=== PATIENT | female | born 1995 ===

== ENCOUNTER 2019-05-26 07:56 | Emergency (ER) | payer MEDICAID, OTHER ==
--- NOTE | 2019-05-26 08:32 | EDM.PDOC ---
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 She reports that her last period was March 10, and she had 2 tests positive at home on March 30. Over the last 2 days she started bleeding and it has slowly gotten heavier. No cramping or pain. No other symptoms - she does not feel lightheaded, dizzy, has not had any other abnormal vaginal discharge, has not had any symptoms of a urinary tract infection such as increased urgency or frequency. She is otherwise healthy, takes no medications. She has not drunk alcohol in the past 3 months, and is a former smoker but has not smoked in the past few months. She is with 3-year-old son. There were no problems with the first . She did notice an GEN some symptoms of her breast hurting and feeling a little bit dizzy like she did when she was before. 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 ED EXAM, GENERAL - Physical Exam Exam: See Below Free Text/Narrative:: General: Alert, very pleasant no acute distress. Pupils equal and reactive, mucous members moist. Neck is supple and there is no cervical lymphadenopathy, thyroid. Illness. Heart is regular rate and rhythm and I do not hear a murmur. Lungs are clear throughout with no wheezes or crackles and good air movement. Abdomen is positive bowel sounds, soft nondistended and tender in the suprapubic area and slightly to the left. No left-sided or right-sided adnexal area tenderness on abdominal exam. Pelvic exam shows normal external female genitalia. Speculum exam shows small amount of blood in the vaginal vault. Cervix is very difficult to visualize but I do not see an open os, it seems to be very anterior and I did not get a clear view. Course - Vital Signs Text/Narrative:: labs ordered, initial exam obtained. Concern for threatened . Last Recorded V/S: Last Vital Signs Temp 36.8 C 05/26/19 07:59 Pulse 79 05/26/19 07:59 Resp 18 05/26/19 07:59 BP 112/67 05/26/19 07:59 Pulse Ox 100 05/26/19 07:59 - Orders/Labs/Meds Orders: Active Orders 24 hr Category Date Time Status CHLAMYDIA/GC AMPLIFICATION Routine Lab 05/26/19 09:12 Received PATIENT RETYPE [BBK] Stat Lab 05/26/19 08:50 Results TYPE AND SCREEN [BBK] Stat Lab 05/26/19 08:50 Results Labs: Laboratory Tests 05/26/19 05/26/19 05/26/19 Range/Units 08:50 08:50 08:50 Hgb 13.3 (11.5-15.5) g/dL HCG, Quant 3178 (<5) mIU/mL Urine Color (YELLOW) Urine Appearance (CLEAR) Urine pH (5.0-6.5) Ur Specific [place] (1.010-1.025) Urine Protein (NEGATIVE) mg/dL Urine Glucose (UA) (NORMAL) mg/dL Urine Ketones (NEGATIVE) mg/dL Urine Occult Blood (NEGATIVE) Urine Nitrite (NEGATIVE) Urine Bilirubin (NEGATIVE) Urine Urobilinogen (NEGATIVE) mg/dL Ur Leukocyte Esterase (NEGATIVE) Urine RBC (0-5) Urine WBC (0-5) Ur Squamous Epith Cells (NS,R,O) Urine Bacteria (NS) Blood Type A POSITIVE Gel Antibody Screen Negative 05/26/19 Range/Units 08:53 Hgb (11.5-15.5) g/dL HCG, Quant (<5) mIU/mL Urine Color Yellow (YELLOW) Urine Appearance Slightly cloudy (CLEAR) Urine pH 6.0 (5.0-6.5) Ur Specific [place] 1.015 (1.010-1.025) Urine Protein Negative (NEGATIVE) mg/dL Urine Glucose (UA) Normal (NORMAL) mg/dL Urine Ketones Negative (NEGATIVE) mg/dL Urine Occult Blood Large H (NEGATIVE) Urine Nitrite Negative (NEGATIVE) Urine Bilirubin Negative (NEGATIVE) Urine Urobilinogen Normal (NEGATIVE) mg/dL Ur Leukocyte Esterase Negative (NEGATIVE) Urine RBC 10-20 H (0-5) Urine WBC 0-5 (0-5) Ur Squamous Epith Cells Few H (NS,R,O) Urine Bacteria Moderate H (NS) Blood Type Gel Antibody Screen - Re-Assessments/Exams Free Text/Narrative Re-Assessment/Exam: 05/26/19 labs reviewed, HCG 3178 which is low given her dates. Abdominal exam had some tenderness. No US available here today. Bedside abdominal US personally performed does not show clear sac, pole, or any visible anatomy. Sent to [facility] for OB & transvaginal US. Patient to return here once complete. Free Text/Narrative Re-Assessment/Exam: 05/26/19 spoke with [facility] regarding preliminary read on US. Adnexa appear clear without evidence of mass. There is heterogenicity of the endometria but no viable visible. 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 At this point, I suspect she has miscarriage and has not yet cleared products of conception. Given that she is still bleeding, recommended followup Wednesday for repeat Quant. If still bleeding could defer repeat US at that time, but needs repeat some time next week to ensure no retained POC. Discussed signs or symptoms which would prompt need for return to the ER over the weekend. All questions answered, she is in agreement with this plan. Departure - Departure Time of Disposition: 12:51 Disposition: Home, Self-Care 01 Preliminary Cause of *Q: Sepsis & Multi System Organ Failure Condition: Fair Clinical Impression: Incomplete - Discharge Information *PRESCRIPTION DRUG MONITORING PROGRAM REVIEWED*: Not Applicable *COPY OF PRESCRIPTION DRUG MONITORING REPORT IN PATIENT LUKE: Not Applicable Instructions: Miscarriage, [id number] Referrals: PCP,None [Primary Care Provider] - Forms: ED Department Discharge Additional Instructions: return to walk-in clinic on Wednesday (or ok to make appointment at another clinic in town if want) for repeat blood test Tests today: Hb 13.3 HCG Quant: 3178 Blood type A+ if: fever feeling lightheaded or dizzy like will pass out when stand up severe abdominal pain lots and lots of bleeding --need more than 2-3 pads every hour for 4 hours or more and not stopping or other concerning symptoms, return to ER - My Orders Last 24 Hours: My Active Orders 05/26/19 08:50 PATIENT RETYPE [BBK] Stat TYPE AND SCREEN [BBK] Stat 05/26/19 09:12 CHLAMYDIA/GC AMPLIFICATION Routine - Assessment/Plan Last 24 Hours: My Active Orders 05/26/19 08:50 PATIENT RETYPE [BBK] Stat TYPE AND SCREEN [BBK] Stat 05/26/19 09:12 CHLAMYDIA/GC AMPLIFICATION Routine
[2019-05-28 11:07] LABS: CHLAMYDIA TRACHOMATIS, NAA Negative (Negative); NEISSERIA GONORRHOEAE, NAA Negative (Negative)
== END 2019-05-26 13:13 | disposition home or self-care (01) ==
LOC: FB.ED 07:56
DX: O03.4 Incomplete spontaneous abortion without complication (principal); Z3A.08 8 weeks gestation of pregnancy
CPT/HCPCS: 36415; 81001; 84702; 85018; 86850; 86900; 86901; 87491; 87591; 99283; 99284